=== PATIENT | male | born 1955 | race African-American/Black ===

== ENCOUNTER 2022-10-03 08:52 | Emergency (ER) | payer OTHER ==
--- OUTSIDE RECORDS SUMMARY | 2022-10-03 08:58 | XMS REPORT | Continuity of Care Document ---
:1955 Author Organization [facility] t Address [address] [place] [address] [place] [id number] Care Team Providers Name Role Phone SIVA PARNELL Primary Care Physician Unavailable COSME BARNES Attending Clinician Unavailable Cosme Barnes DO Attending Clinician Doctor Unassigned, [place] Attending Clinician Unavailable Jose Sellers Attending Clinician Janel Selby MD Attending Clinician JANEL SELBY Attending Clinician Unavailable COSME BARNES Admitting Clinician Unavailable Payers Payer Name Policy Type Policy Number Effective Date Expiration Date S ource MEDICARE OBS/INPT [id number] 2021 PART A ONLY 00:00:00 Problems Condition Condition Condition Status Onset Resolution Last Treating Co mments Source Name Details Category Date Date Treatment Clinician Date Amnesia Amnesia Problem Active 2020-12-24 Me moria (finding) (finding) 00:46:39 l Active Mo Problem 12/24/2020 [facility] Concussion Problem Active 2020-12-24 M emoria injury of Concussion 00:46:39 l body injury of Mo structure body (disorder) structure (disorder) Active Problem 12/24/2020 [facility] Hypertensi Hypertens Problem Active 2020-12-24 Memoria ve shan 00:46:39 l disorder, disorder, Herm katerin systemic systemic arterial arterial (disorder) (disorder) Active Problem 12/24/2020 [facility] Allergies, Adverse Reactions, Alerts Allergy Allergy Status Severity Reaction(s) Onset Inactive Treating Comm ents Source Name Type Date Date Clinician NO KNOWN Drug Active Univers ALLERGIE Class ity of [facility] Social History Social Habit Start Date Stop Date Quantity Comments Source Exposure to 2022-07-26 2022-08-05 Not sure [facility] SARS-CoV-2 (event) 00:00:00 09:18:00 [facility] Social History 2020-12-21 2020-12-21 [facility] Ariana munson 20:12:03 20:12:03 Sex [birth year] [facility] 00:00:00 00:00:00 Medical Branch Smoking Status Start Date Stop Date Source Tobacco smoking consumption [facility] unknown Branch Medications Ordered Filled Start Stop Current Ordering Indication Dosage Frequency Signature Comments Components Source Medication Medication Date Date Medication? Clinician (SIG) Name Name dexamethaso 2022- Yes 10mg 10 mg, Uni vers ne 08-05 Oral, ity of (DECADRON 16:45: 04:44 ONCE, 1 [place] PHOSPH[place] 00 :00 dose, On Medic al injection [facility] Branch 10 mg 08/05/22 at 1145, Routine NaCl 0.9% 2022- No 1000mL at 999 Uni vers (NS) bolus 08-05 mL/hr, ity of infusion 15:30: 16:16 1,000 mL, [place] as 1,000 mL 00 :00 IV Medical Piggyback, [place] ONCE, 1 dose, On e 08/05/22 at 1030, STAT Ondansetron Yes 4 mg = 1 Me moria 4 MG 8-27 tab, PO, l Disintegrat 20:27: TID, PRN He rmann ing Tablet 00 Nausea / Vomiting, Dissolve tab under tongue, # 10 tab, 0 Refill(s) nebivolol Yes 20 mg = 1 Mem oria 20 MG Oral 8-27 tab, PO, l Tablet 20:27: Daily, # [place] [Bystolic] 00 90 tab, 1 Refill(s) tramadol Yes 50 mg = 1 Maynor roderick hydrochlori 8-27 tab, PO, l de 50 MG 20:27: Q6H, PRN Elsa nn Oral Tablet 00 Pain, # 40 tab, 0 Refill(s) nebivolol Yes 20 mg = 1 Mem oria 20 MG Oral 8-27 tab, PO, l Tablet 20:27: Daily, # Mo [Bystolic] 00 90 tab, 1 Refill(s) tramadol Yes 50 mg = 1 Maynor roderick hydrochlori 8-27 tab, PO, l de 50 MG 20:27: Q6H, PRN Elsa nn Oral Tablet 00 Pain, # 40 tab, 0 Refill(s) Ondansetron Yes 4 mg = 1 Me moria 4 MG 8-27 tab, PO, l Disintegrat 20:27: TID, PRN He rmann ing Tablet 00 Nausea / Vomiting, Dissolve tab under tongue, # 10 tab, 0 Refill(s) nebivolol Yes 20 mg = 1 Mem oria 20 MG Oral 8-27 tab, PO, l Tablet 20:27: Daily, # [place] [Bystolic] 00 90 tab, 1 Refill(s) tramadol Yes 50 mg = 1 Maynor roderick hydrochlori 8-27 tab, PO, l de 50 MG 20:27: Q6H, PRN Elsa nn Oral Tablet 00 Pain, # 40 tab, 0 Refill(s) Ondansetron Yes 4 mg = 1 Me moria 4 MG 8-27 tab, PO, l Disintegrat 20:27: TID, PRN He rmann ing Tablet 00 Nausea / Vomiting, Dissolve tab under tongue, # 10 tab, 0 Refill(s) ondansetron 2020- No 4mg 4 mg, Slow Univers (ZOFRAN 11-10 IV Push, ity of (PF)) 15:30: 14:25 ONCE, 1 [place] injection 4 00 :00 dose, Sat Med ical mg 11/10/20 at Branch 1030, EVELYN morpHINE 2020-0 2020- No 4mg 4 mg, Slow Un fatou injection 4 11-10 IV Push, ity of mg 15:30: 14:25 ONCE, 1 [place] 00 :00 dose, Sat Medical 11/10/20 at Branch 1030, STAT traMADoL 50 0 Yes [id number] 50mg Take 1 Univ ers mg tablet -17 tablet by ity o f 00:00: mouth [place] 00 every 6 Medical (six) Branch hours as needed for Pain (scale 4-6). Indication s: acute pain ondansetron 0 Yes [id number] 4mg Take 1 Univers 4 mg 7-17 [id number] tablet by ity of disintegrat 00:00: mouth [place] ing tablet 00 every 4 Medica l (four) Branch hours as needed for Nausea and Vomiting (N/V). traMADoL 50 0 Yes [id number] 50mg Take 1 Univ ers mg tablet 7-17 tablet by ity o f 00:00: mouth [place] 00 every 6 Medical (six) Branch hours as needed for Pain (scale 4-6). Indication s: acute pain ondansetron Yes [id number] 4mg Take 1 Univers 4 mg 7-17 [id number] tablet by ity of disintegrat 00:00: mouth [place] ing tablet 00 every 4 Medica l (four) Branch hours as needed for Nausea and Vomiting (N/V). traMADoL 50 0 Yes [id number] 50mg Take 1 Univ ers mg tablet 7-17 tablet by ity o f 00:00: mouth [place] 00 every 6 Medical (six) Branch hours as needed for Pain (scale 4-6). Indication s: acute pain ondansetron Yes [id number] 4mg Take 1 Univers 4 mg 7-17 [id number] tablet by ity of disintegrat 00:00: mouth [place] ing tablet 00 every 4 Medica l (four) Branch hours as needed for Nausea and Vomiting (N/V). Immunizations Ordered Filled Immunization Date Status Comments [facility] e Immunization Name Name SARS-COV-2 COVID-19 2020-07-02 Completed Unive rsity of MODERNA VACCINE 00:00:[address] [facility] SARS-COV-2 COVID-19 2020-07-02 Completed Unive rsity of MODERNA VACCINE 00:00:[address] [facility] SARS-COV-2 COVID-19 2020-07-02 Completed Unive rsity of MODERNA 12+ YRS 00:00:00 [facility] Vital Signs Vital Name Observation Time Observation Value Comments Source Systolic blood 2022-08-05 16:10:42 130 mm[Hg] Univer sity of pressure [facility] Diastolic blood 2022-08-05 16:10:42 68 mm[Hg] Unive rsity of [facility] Heart rate 2022-08-05 16:10:42 58 /min Universi ty of [place] [facility] [place] Body temperature 2022-08-05 16:10:42 36.17 Annie [facility] ersity [facility] Respiratory rate 2022-08-05 16:10:42 16 /min [facility] ersity [facility] Body height 2022-08-05 14:17:00 193 cm Universi ty of [facility] Body weight 2022-08-05 14:17:00 113.399 kg Universi ty of [facility] BMI 2022-08-05 14:17:00 30.43 kg/m2 Universi ty [facility] Oxygen saturation in 2022-08-05 14:17:00 97 /min University of Arterial blood by [facility] Pulse oximetry Branch Systolic blood 2020-11-10 16:00:00 179 mm[Hg] Univer sity of pressure [facility] Diastolic blood 2020-11-10 16:00:00 94 mm[Hg] Unive rsity of pressure [facility] Heart rate 2020-11-10 16:00:00 89 /min Universi ty of [facility] Oxygen saturation in 2020-11-10 16:00:00 96 /min University of Arterial blood by [facility] Pulse oximetry Branch Respiratory rate 2020-11-10 15:00:00 16 /min [facility] Body temperature 2020-11-10 13:27:00 36.44 Annie [facility] Body weight 2020-11-10 13:27:00 117.935 kg Universi ty of [facility] Diastolic (mm Hg) 2020-12-21 20:10:00 Mem orial [place] Heart Rate 2020-12-21 20:10:00 Memorial Mo Respitory Rate 2020-12-21 20:10:00 Memori al [place] Height 2020-12-21 20:10:00 187.96 cm [facility] [place] Weight 2020-12-21 20:10:00 [facility] Mo BMI Calculated 2020-12-21 20:10:00 Memori al [place] Systolic (mm Hg) 2020-12-21 20:10:00 [facility] Procedures Procedure Date / Time Performing Clinician Source Performed XR CHEST 1 VW 2022-08-05 15:41:21 Singer [facility] COMP. METABOLIC PANEL 2022-08-05 14:30:00 Cosme Barnes [facility] ([id number]) [facility] CBC WITH DIFF 2022-08-05 14:30:00 Singer [facility] AUTHORIZATION FOR 2021-01-24 05:01:00 Doctor Unassigned, No [facility] RELEASE OF PHI Name [facility] URINALYSIS 2020-11-10 14:21:00 Bal [facility] XR CHEST 1 VW 2020-11-10 14:15:24 Bal [facility] XR RIBS 3 VW LEFT 2020-11-10 14:15:24 Bal [facility] CT HEAD WO CONTRAST 2020-11-10 14:15:07 Janel Selby [facility] ty of [facility] LIPASE 2020-11-10 13:38:00 Bal [facility] TROPONIN I 2020-11-10 13:38[facility] 2020-11-10 13:38:00 Bal [facility] (NA, K, CL, CO2, Medical Branch GLUCOSE, BUN, CREATININE, CA) COMP. METABOLIC PANEL 2020-11-10 13:38:00 [facility] ([id number]) [facility] CBC WITH DIFF 2020-11-10 13:38:00 [facility] NOTICE OF PRIVACY 2020-11-10 13:23:05 Doctor Unassigned, No [facility] PRACTICES Name [facility] Encounters Start End Encounter Admission Attending Care Care Encounter Source Date/Time Date/Time Type Type Clinicians Facility Department ID 2022-08-05 2022-08-05 Emergency X SINGER TNRENETTA ERT [id number] Univers 09:19:00 11:15:00 COSME ca [facility] 2022-08-05 2022-08-05 Emergency ANTON Barnes [id number] Univers 09:19:00 11:15:00 Cosme JOYCE [id number] i [facility] 4.2.7.2.686 [facility] [id number] [facility] 084 [place] 2021-01-24 2021-01-24 Orders Doctor YESENIA [id number] Univers 00:00:00 00:00:00 Only Unassigned, VIANNEY [id number] ity of [place] [facility] [id number] [facility] [id number] [facility] 009 [place] 2020-12-21 2020-12-22 Outpatient nullFlavo MNA [id number] Memoria 20:00:00 04:59:59 r Neurology 00 l Guido Valdezann 2020-12-21 2020-12-22 Outpatient nullFlavo MNA [id number] Memoria 20:00:00 04:59:59 r Neurology 00 l Guido [place] 2020-12-21 2020-12-21 Outpatient LISET SellersMIDAYNE [id number] 15:00:00 23:59:59 Jose 00 Agustin 2020-12-21 2020-12-21 Outpatient MHIE BLACKIE [id number] Memoria 15:00:00 15:00:00 00 l [place] 2020-11-10 2020-11-10 [facility] [id number] Univers 08:21:00 11:26:00 Janel Joyce [id number] i ty [place] 4.2.7.2.686 [facility] [id number] [address] 2020-11-10 2020-11-10 [facility] [id number] Univers 08:21:00 08:21:00 JANEL ca [facility] Results Test Description Test Time Test Comments Results Result Comments Source COMP. METABOLIC PANEL ([id number]) 2022-08-05 15:07:46 Test Item Value Reference Range Interpretation Comme nts NA (test code = 2224335991) 138 mmol/L 135-145 K (test code = 2039856180) 3.1 mmol/L 3.5-5.0 L CL (test code = 2573396693) 105 mmol/L 98-108 CO2 TOTAL (test code = 6409897798) 22 mmol/L 23-31 L AGAP (test code = 8285397868) 11 2-16 BUN (test code = 4316280835) 22 mg/dL 7-23 GLUCOSE (test code = 1381589582) 102 mg/dL 70-110 CREATININE (test code = 0.93 mg/dL 0.60-1.25 8738476931) TOTAL BILI (test code = 2.6 mg/dL 0.1-1.1 H 0350383572) CALCIUM (test code = 8047435691) 8.9 mg/dL 8.6-10.6 T PROTEIN (test code = 1158187580) 7.9 g/dL 6.3-8.2 ALBUMIN (test code = 0856620817) 3.5 g/dL 3.5-5.0 ALK PHOS (test code = 8922975103) 62 U/L 34-122 ALTv (test code = 1742-6) 102 U/L 5-50 H AST(SGOT) (test code = 2367344265) 97 U/L 13-40 H eGFR (test code = 6196716292) 81.3 mL/min/1.73m2 LATRELL (test code = LATRELL) Association of Glomerular Filtration Rate (GFR) and Staging of Kidney Disease* + +-------- + ------+| GFR (mL/min/1.73 m2) ?| With Kidney Damage ?| ?Without Kidney Damage+ +-- + +| ?>90 ?| ?Stage one ?| ? Normal ?+ +------- + -------+| ?60-89 ?| ?Stage two ?| ? Decreased GFR ? + +-------- + ------+| ?30-59 ?| ?Stage three ?| ? Stage three ? + +-------- + ------+| ?15-29 ?| ?Stage four ? | ? Stage four ?+ +------- + -------+| ?<15 (or dialysis) ? ?| ?Stage five ? | ? Stage five ?+ +------- + -------+ *Each stage assumes the associated GFR level has been in effect for at least three months. ?Stages 1 to 5, with or without kidney disease, indicate chronic kidney disease. Notes: Determination of stages one and two (with eGFR >59mL/min/1.73 m2) requires estimation of kidney damage for at least three months as defined by structural or functional abnormalities of the kidney, manifested by either:Pathological abnormalities or Markers of kidney damage (including abnormalities in the composition of the blood or urine or abnormalities in imaging tests). Lab Interpretation (test code = Abnormal 60698-0) [facility] WITH [id number] 15:00:06 Test Item Value Reference Range Interpretation Comments WBC (test code = 11.19 See_Comment H [Automated 8290-2) message] The sy stem which generated this result transmitted reference range : 4.20 - 10.70 10*3/?L. The reference range was not used to interpret this result as normal/abnormal . RBC (test code = 3.50 See_Comment L [Automated 789-8) message] The sy stem which generated this result transmitted reference range : 4.26 - 5.52 10*6/?L. The reference range was not used to interpret this result as normal/abnormal . HGB (test code = 10.6 g/dL 12.2-16.4 L 718-7) HCT (test code = 31.9 % 38.4-49.3 L 4544-3) MCV (test code = 91.1 fL 81.7-95.6 787-2) MCH (test code = 30.3 pg 26.1-32.7 785-6) MCHC (test code = 33.2 g/dL 31.2-35.0 786-4) RDW-SD (test code = 42.9 fL 38.5-51.6 48753-5) RDW-CV (test code = 13.2 % 12.1-15.4 788-0) PLT (test code = 197 See_Comment [Automated 777-3) message] The sy stem which generated this result transmitted reference range : 150 - 328 10*3/ ?L. The reference r alisson was not used to interpret this result as normal/abnormal . MPV (test code = 10.2 fL 9.8-13.0 49521-6) NRBC/100 WBC (test 0.0 See_Comment [Automat ed code = 0470246932) message] The system which generated this result transmitted reference range : 0.0 - 10.0 /100 WBCs. The refer ence range was not u sed to interpret th is result as normal/abnormal . NRBC x10^3 (test code See_Comment [Auto mated = 9534663718) message] The [employer] which generated this result transmitted reference range : 10*3/?L. The reference range was not used to interpret this result as normal/abnormal . GRAN MAT (NEUT) % 66.1 % (test code = 770-8) IMM GRAN % (test code 0.60 % = 3551756601) LYMPH % (test code = 23.2 % 736-9) MONO % (test code = 6.9 % 5905-5) EOS % (test code = 2.2 % 713-8) BASO % (test code = 1.0 % 706-2) GRAN MAT x10^3(ANC) 7.39 10*3/uL 1.99-6.95 H (test code = 6301457096) IMM GRAN x10^3 (test 0.07 10*3/uL 0.00-0.06 H code = 5153437192) LYMPH x10^3 (test code 2.60 10*3/uL 1.09-3.23 = 731-0) MONO x10^3 (test code 0.77 10*3/uL 0.36-1.02 = 742-7) EOS x10^3 (test code = 0.25 10*3/uL 0.06-0.53 711-2) BASO x10^3 (test code 0.11 10*3/uL 0.01-0.09 H = 704-7) Lab Interpretation Abnormal (test code = 63170-6) [id number] 15:55:52 Test Item Value Reference Interpretation Comments Range TROPONIN I (test 0.006 ng/mL See_Comment [Automated code = 6617033539) message] The system which generated this result transmitted reference range : <=0.034. The reference range was not used to interpret this result as normal/abnormal . LATRELL (test code = Reference (Normal) LATRELL) Range (defined by the 99th percentile reference limit): <= 0.034 ng/mL Note: Cardiac troponin begins to rise 3-4 hours after the onset of ischemia. Repeat in 4-6 hours if the sample was drawn within 3-4 hours of the onset of the symptom and found normal. Diagnosis of myocardial injury is made with acute changes in cTn concentrations with at least one serial sample above the 99th percentile upper reference limit (URL), taken together with the patient's clinical presentation. Biotin has been reported to cause a negative bias, interpret results relative to patient's use of biotin. Lab Interpretation Normal (test code = 35538-1) [facility] 1 [id number] 15:07:54Normal chest. RL: 6507 STUDY: SINGLE FRONTAL VIEW OF THE CHEST ORDERING PHYSICIAN: JANEL SELBY DATE: ?11/10/2020 8:45 AM REASON FOR EXAM: ?left chest wall pain TECHNIQUE: ?Frontal view of the chest COMPARISON: None available FINDINGS: The cardiomediastinal silhouette is normal. The lungs are clear. ? The remaining osseous and soft tissue structures are unremarkable. [facility], Radiant Results Inft User - 11/10/2020 10:08 AM CDTFormatting ofthis note might be different from the original.STUDY: SINGLE FRONTAL VIEW OF THE CHESTORDERING PHYSICIAN: JANEL SELBYDATE: 11/10/2020 8:45 AMREASON FOR EXAM: left chest wall pain TECHNIQUE: Frontal view of the chestCOMPARISON: None availableFINDINGS: The cardiomediastinal silhouette is normal. The lungs are clear. The remaining osseous and soft tissue structures are unremarkable.IMPRESSIONNormal chest.RL: 6507 [facility] 2020-11-10 14:40:09 Test Item Value Reference Range Interpretation Comments APPEARANCE (test code = Clear Clear 9306296210) COLOR (test code = Yellow Yellow 5591491718) PH (test code = 4.8-8.0 0379453603) SP GRAVITY (test code = 1.003-1.030 5713581169) GLU U QUAL (test code = Normal Normal 8653873597) BLOOD (test code = Negative Negative 0601196536) KETONES (test code = Negative Negative 2349572114) PROTEIN (test code = Negative Negative 2887-8) UROBILIN (test code = 4.0 mg/dL Normal A 2668661543) BILIRUBIN (test code = Negative Negative 2290613560) NITRITE (test code = Negative Negative 2931913574) LEUK BRIGIDO (test code = Negative Negative 7786757912) RBC/HPF (test code = See_Comment [Autom ated message] 3595217832) The system Schedule [employer] Systems generated this result transmit nneka reference range : 0 - 3 HPF. The refe rence range was not u sed to interpret th is result as normal/abnormal . WBC/HPF (test code = <1 See_Comment [Autom ated message] 6634410157) The system [employer] generated this result transmit nneka reference range : 0 - 5 HPF. The refe rence range was not u sed to interpret th is result as normal/abnormal . BACTERIA (test code = Negative Negative 4230554482) SQ EPITH (test code = HPF 1050424877) Lab Interpretation (test Abnormal code = 96646-0) [facility] [id number] 14:35:39 No acute intracranial abnormality. Preliminary Report Dictated by Resident: Susan Rider I, Jeyson Bella MD., have reviewed this study and agree with the abovereport.EXAM: CT HEAD WO CONTRAST HISTORY: 65 years -old Male with Head trauma after fall, abnormal mentalstatus (Age 19-64y) COMPARISON: None available. TECHNIQUE: Axial CT of the head was performed and reconstructed at 5 mmintervals. Coronal and sagittal reformatted images were generated. FINDINGS:The ventricles and cerebral sulci are normal in caliber and configuration.No hydrocephalus, midline shift or pathological extra-axial fluidcollection is present. The basal cisterns are unremarkable. There is no acute intracranial hemorrhage or significant mass effect. Noparenchymal attenuation abnormality. The mendez-white matter differentiationis preserved. Remote fracture deformity of the left medial orbital wall. The mastoid aircells and paranasal air sinuses are clear. The calvarium and central skullbase are unremarkable. [facility], Radiant Results Inft User - 11/10/2020 9:36 AM CDT EXAM: CT HEAD WO CONTRASTHISTORY: 65 years -old Male with Head trauma after fall, abnormal mentalstatus (Age 19-64y) COMPARISON: None available.TECHNIQUE: Axial CT of the head was performed and reconstructed at 5 mmintervals. Coronal and sagittal reformatted images were generated.FINDINGS:The ventriclesand cerebral sulci are normal in caliber and configuration.No hydrocephalus, midline shift or patholo gical extra-axial fluidcollection is present. The basal cisterns are unremarkable.There is no acute intracranial hemorrhage or significant mass effect. Noparenchymal attenuation abnormality. The mendez-white matter differentiationis preserved.Remote fracture deformity of the left medial orbital wall. The mastoid aircells and paranasal air sinuses are clear. The calvarium and central skullbase are unremarkable.IMPRESSIONNo acute intracranial abnormality.Preliminary Report Dictated by Resident: Jeyson Corrales MD., have reviewed this study and agree with the abovereport. [facility] RIBS 3 VW [id number] 14:29:57 Impression:1. ?No acute disease. No displaced rib fracture. Location Code: 2831 Clinical statement: left chest wall pain . Study: Chest x-rayand left rib series 4 views. Comparison: None. Ordering physician: JANEL SELBY Findings:Lung volumes are normal. ?There is no consolidation, effusion, edema orpneumothorax. ?The cardiac and mediastinal silhouette is unremarkable. ?Thetrachea is midline. ?The osseous structures are unremarkable. [facility], Radiant Results Inft User - 11/10/2020 9:31 AM CDT Clinical statement: left chest wall pain .Study: Chest x-ray and left rib series 4 views. Comparison: None.Ordering physician: JANEL SELBY Findings:Lung volumes are normal. There is no consolidation, effusion, edema orpneumothorax. The cardiac and mediastinal silhouette is unremarkable. Thetrachea is midline. The osseous structures are unremarkable.IMPRESSIONImpression:1. No acute disease. No displaced rib fracture.Location Code: 2831Electronically signed by Nhan Hadley MD at 19:29 AMUnParkview Regional HospitalCOMP. METABOLIC PANEL (54395)2020-11-10 14:00:48 Test Item Value Reference Range Interpretation Comments NA (test code = 143 mmol/L 135-145 0254218107) K (test code = 4.0 mmol/L 3.5-5.0 8702149181) CL (test code = 107 mmol/L 98-108 5041373579) CO2 TOTAL (test code = 25 mmol/L 23-31 8174173285) AGAP (test code = 2-16 3019020478) BUN (test code = 12 mg/dL 7-23 0262148352) GLUCOSE (test code = 104 mg/dL 70-110 3682185821) CREATININE (test code = 0.83 mg/dL 0.60-1.25 0680012009) TOTAL BILI (test code = 0.7 mg/dL 0.1-1.6 6490509921) CALCIUM (test code = 9.8 mg/dL 8.6-10.6 9785384109) T PROTEIN (test code = 8.7 g/dL 6.3-8.2 H 6653191549) ALBUMIN (test code = 4.6 g/dL 3.5-5.0 5372645246) ALK PHOS (test code = 43 U/L 34-122 0818538057) ALTv (test code = 19 U/L 5-50 1742-6) AST(SGOT) (test code = 32 U/L 13-40 8807717158) eGFR (test code = mL/min/1.73m2 3878573521) LATRELL (test code = LATRELL) Association of Glomerular Filtration Rate (GFR) and Staging of Kidney Disease* + --+ --+ ------+| GFR (mL/min/1.73 m2) ?| With Kidney Damage ?| ?Without Kidney Damage+ --------+ --------+ +| ?>90 ?| ?Stage one ?| ? Normal ?+ ---+ ---+ -------+| ?60-89 ?| ?Stage two ?| ? Decreased GFR ? + --+ --+ ------+| ?30-59 ?| ?Stage three ?| ? Stage three ? + --+ --+ ------+| ?15-29 ?| ?Stage four ? | ? Stage four ?+ ---+ ---+ -------+| ?<15 (or dialysis) ? ?| ?Stage five ? | ? Stage five ?+ ---+ ---+ -------+ *Each stage assumes the associated GFR level has been in effect for at least three months. ?Stages 1 to 5, with or without kidney disease, indicate chronic kidney disease. Notes: Determination of stages one and two (with eGFR >59mL/min/1.73 m2) requires estimation of kidney damage for at least three months as defined by structural or functional abnormalities of the kidney, manifested by either:Pathological abnormalities or Markers of kidney damage (including abnormalities in the composition of the blood or urine or abnormalities in imaging tests). Lab Interpretation Abnormal (test code = 77368-2) [facility] METABOLIC PANEL (NA, K, CL, CO2, GLUCOSE, BUN, CREATININE, CA)2020-11-10 14:00:48 Test Item Value Reference Range Interpretation Comments NA (test code = 143 mmol/L 135-145 9364799236) K (test code = 4.0 mmol/L 3.5-5.0 0660755417) CL (test code = 107 mmol/L 98-108 4854272345) CO2 TOTAL (test code 25 mmol/L 23-31 = 4615479755) AGAP (test code = 2-16 9671671004) BUN (test code = 12 mg/dL 7-23 6281014100) GLUCOSE (test code = 104 mg/dL 70-110 2745312179) CREATININE (test code 0.83 mg/dL 0.60-1.25 = 3613276920) CALCIUM (test code = 9.8 mg/dL 8.6-10.6 7932998444) eGFR (test code = mL/min/1.73m2 3755899586) LATRELL (test code = LATRELL) Association of Glomerular Filtration Rate (GFR) and Staging of Kidney Disease* + + +- +| GFR (mL/min/1.73 m2) ?| With Kidney Damage ?| ?Without Kidney Damage+ ------+ ----+ ------+| ?>90 ?| ?Stage one ?| ? Normal ?+ -+ + -+| ?60-89 ?| ?Stage two ?| ? Decreased GFR ? + + +- +| ?30-59 ?| ?Stage three ?| ? Stage three ? + + +- +| ?15-29 ?| ?Stage four ? | ? Stage four ?+ -+ + -+| ?<15 (or dialysis) ? ?| ?Stage five ? | ? Stage five ?+ -+ + -+ *Each stage assumes the associated GFR level has been in effect for at least three months. ?Stages 1 to 5, with or without kidney disease, indicate chronic kidney disease. Notes: Determination of stages one and two (with eGFR >59mL/min/1.73 m2) requires estimation of kidney damage for at least three months as defined by structural or functional abnormalities of the kidney, manifested by either:Pathological abnormalities or Markers of kidney damage (including abnormalities in the composition of the blood or urine or abnormalities in imaging tests). [facility] Test Item Value Reference Range Interpretation Comments LIPASE (test code = 7410902717) 139 U/L 0-220 Lab Interpretation (test code = Normal 00541-6) [facility] WITH [id number] 13:46:04 Test Item Value Reference Range Interpretation Comments WBC (test code = See_Comment [Automated 8380-2) message] The sy stem which generated this result transmitted reference range : 4.20 - 10.70 10*3/?L. The reference range was not used to interpret this result as normal/abnormal . RBC (test code = See_Comment [Automated 317-8) message] The sy stem which generated this result transmitted reference range : 4.26 - 5.52 10*6/?L. The reference range was not used to interpret this result as normal/abnormal . HGB (test code = 14.0 g/dL 12.2-16.4 718-7) HCT (test code = 42.0 % 38.4-49.3 4544-3) MCV (test code = 94.6 fL 81.7-95.6 787-2) MCH (test code = 31.5 pg 26.1-32.7 785-6) MCHC (test code = 33.3 g/dL 31.2-35.0 786-4) RDW-SD (test code = 39.6 fL 38.5-51.6 50840-0) RDW-CV (test code = 11.5 % 12.1-15.4 L 788-0) PLT (test code = See_Comment [Automated 777-3) message] The sy stem which generated this result transmitted reference range : 150 - 328 10*3/ ?L. The reference r alisson was not used to interpret this result as normal/abnormal . MPV (test code = 8.7 fL 9.8-13.0 L 15485-2) NRBC/100 WBC (test See_Comment [Automat ed code = 8478349562) message] The system which generated this result transmitted reference range : 0.0 - 10.0 /100 WBCs. The refer ence range was not u sed to interpret th is result as normal/abnormal . NRBC x10^3 (test code <0.01 See_Comment [Auto mated = 5813321147) message] The s ystem which generated this result transmitted reference range : 10*3/?L. The reference range was not used to interpret this result as normal/abnormal . GRAN MAT (NEUT) % 60.4 % (test code = 770-8) IMM GRAN % (test code 0.30 % = 3648968168) LYMPH % (test code = 32.3 % 736-9) MONO % (test code = 5.7 % 5905-5) EOS % (test code = 0.4 % 713-8) BASO % (test code = 0.9 % 706-2) GRAN MAT x10^3(ANC) 4.58 10*3/uL 1.99-6.95 (test code = 1104563633) IMM GRAN x10^3 (test <0.03 0.00-0.06 code = 8182964065) LYMPH x10^3 (test code 2.45 10*3/uL 1.09-3.23 = 731-0) MONO x10^3 (test code 0.43 10*3/uL 0.36-1.02 = 742-7) EOS x10^3 (test code = 0.03 10*3/uL 0.06-0.53 L 711-2) BASO x10^3 (test code 0.07 10*3/uL 0.01-0.09 = 704-7) Lab Interpretation Abnormal (test code = 44217-8) [facility]"
--- NOTE | 2022-10-03 11:02 | RAD REPORT ---
EXAM DESCRIPTION: RAD - Chest Single View - 10/03/2022 10:56 am CLINICAL HISTORY: SWELLING Chest pain. COMPARISON: Chest Single View dated 07/28/2022 FINDINGS: Portable technique limits examination quality. The lungs are grossly clear with scarring in the left base. The heart is normal in size. No displaced fractures. IMPRESSION: No acute intrathoracic process suspected.
--- NOTE | 2022-10-03 11:02 | RAD REPORT ---
EXAM DESCRIPTION: US - Extrem Venous W Compress Rebel - 10/03/2022 10:47 am CLINICAL HISTORY: SWELLING Bilateral leg edema and swelling. COMPARISON: No comparisons TECHNIQUE: Real-time sonographic interrogation of the left and right lower extremity deep venous sys tems was performed. FINDINGS: Partial thrombus is suspected right femoral vein. Additional thrombus is noted in the righ t popliteal vein and to a lesser extent the left popliteal vein. IMPRESSION: Bilateral DVT is suspected, greater on the right as detailed.
--- NOTE | 2022-10-03 11:03 | RAD REPORT ---
EXAM DESCRIPTION: RAD - Ankle Right 3 View - 10/03/2022 10:56 am CLINICAL HISTORY: SWELLING COMPARISON: No comparisons FINDINGS: Evidence of previous trauma involves the right ankle. There is moderate soft tissue swelli ng adjacent to the lateral malleolus. Small plantar calcaneal spur. No acute fracture seen.
--- NOTE | 2022-10-03 11:51 | ER ---
Nurse's Notes [facility] Name: Benjamin Toussaint Sr Age: 67 yrs Sex: Male : 1955 Arrival Date: 10/03/2022 Time: 08:52 Bed Treatment Private MD: Diagnosis: Deep vein thrombosis Presentation: 10/03 09:24 Chief complaint: Patient states: CANDY lower leg swelling since Thursday. Coronavirus ld1 screen: At this time, the client does not indicate any symptoms associated with coronavirus-19. Ebola Screen: No symptoms or risks identified at this time. Initial Sepsis Screen: Does the patient meet any 2 criteria? No. Patient's initial sepsis screen is negative. Does the patient have a suspected source of infection? No. Patient's initial sepsis screen is negative. Risk Assessment: Do you want to hurt yourself or someone else? Patient reports no desire to harm self or others. Onset of symptoms was October 03, 2022 at 09:25. 09:24 Method Of Arrival: Ambulatory ld1 09:24 Acuity: ESTEVAN 3 ld1 Triage Assessment: 09:25 General: Appears in no apparent distress. comfortable, Behavior is calm, cooperative, ld1 appropriate for age. Pain: Denies pain. EENT: No signs and/or symptoms were reported regarding the EENT system. Neuro: Level of Consciousness is awake, alert, obeys commands, Oriented to person, place, time, situation. Cardiovascular: Capillary refill < 3 seconds Patient's skin is warm and dry. Respiratory: Airway is patent Respiratory effort is even, unlabored. GI: Abdomen is flat, non-distended. : No signs and/or symptoms were reported regarding the genitourinary system. Derm: No signs and/or symptoms reported regarding the dermatologic system. Musculoskeletal: No signs and/or symptoms reported regarding the musculoskeletal system. Historical: - Allergies: :25 No Known Allergies; ld1 - PMHx: : Hypertensive disorder; memory issues; ld1 - PSHx: : None; ld1 - Immunization history:: Adult Immunizations up to date, Client reports receiving the 2nd dose of the Covid vaccine. - Social history:: Smoking status: Patient denies any tobacco usage or history of. Patient uses alcohol, on a daily basis. Screenin:53 [facility] ED Fall Risk Assessment (Adult) History of falling in the last 3 months, nj1 including since admission No falls in past 3 months (0 pts) Confusion or Disorientation No (0 pts) Intoxicated or Sedated No (0 pts) Impaired Gait No (0 pts) Mobility Assist Device Used No (0 pt) Altered Elimination No (0 pt) Score/Fall Risk Level 0 - 2 = Low Risk Oriented to surroundings, Maintained a safe environment, Hourly rounding (assess needs \T\ fall precautionary measures) done. Abuse screen: Denies threats or abuse. Denies injuries from another. Nutritional screening: No deficits noted. Tuberculosis screening: No symptoms or risk factors identified. Assessment: 09:52 Reassessment: Patient appears in no apparent distress at this time. Patient and/or nj1 family updated on plan of care and expected duration. Pain level reassessed. Patient is alert, oriented x 3, equal unlabored respirations, skin warm/dry/pink. Patient denies pain at this time. Cardiovascular: swelling noted to candy lower legs/ankles.. 10:50 Reassessment: Not in room at this time. nj1 11:10 Reassessment: Patient appears in no apparent distress at this time. Patient and/or nj1 family updated on plan of care and expected duration. Pain level reassessed. Patient is alert, oriented x 3, equal unlabored respirations, skin warm/dry/pink. Patient denies pain at this time. 12:13 Reassessment: Patient appears in no apparent distress at this time. Patient and/or nj1 family updated on plan of care and expected duration. Pain level reassessed. Patient is alert, oriented x 3, equal unlabored respirations, skin warm/dry/pink. Patient denies pain at this time. Vital Signs: 09:24 Pulse 76; Resp 18; Temp 97.9(TE); Pulse Ox 99% on R/A; Weight 108.86 kg; Height 6 ft. 4 ld1 in. ; Pain 0/10; 12:13 BP 155 / 88; Pulse 50; Resp 16; Pulse Ox 100% on R/A; Pain 0/10; nj1 09:24 Body Mass Index 29.21 (108.86 kg, 193.04 cm) ld1 09:24 Pain Scale: Adult ld1 12:13 Pain Scale: Adult al1 ED Course: 08:55 Patient arrived in ED. ts1 09:13 Michelet Hernandez PA is PHCP. jmm 09:13 Solis Garg DO is Attending Physician. jm 09:25 Triage completed. ld1 09:25 Arm band placed on right wrist. ld1 09:27 Chitra Corona, RN is Primary Nurse. nj1 09:53 Patient has correct armband on for positive identification. Bed in low position. Call nj1 light in reach. Adult w/ patient. 10:48 US Extremity Venous W Compression Candy In Process Unspecified. EDMS 10:57 Chest Single View XRAY In Process Unspecified. EDMS 10:57 Ankle Right 3 View XRAY In Process Unspecified. EDMS 11:52 Guillermina Avendano MD is Referral Physician. jmm 12:21 No provider procedures requiring assistance completed. nj1 12:31 Patient did not have IV access during this emergency room visit. nj1 Administered Medications: 12:13 Drug: Eliquis PO 10 mg Route: PO; nj1 12:38 Follow up: Response: No adverse reaction nj1 Medication: 12:21 VIS not applicable for this client. nj1 Outcome: 11:51 Discharge ordered by MD. jmm 12:30 Discharged to home ambulatory, with family. nj1 12:30 Condition: stable 12:30 Discharge instructions given to patient, family, Instructed on discharge instructions, follow up and referral plans. medication usage, safety practices, Demonstrated understanding of instructions, follow-up care, medications, Prescriptions given X 1. 12:31 Patient left the ED. nj1 Signatures: Dispatcher [employer] EDMS Michelet Hernandez PA PA jm Angela Garg, CLIFFORD RN ld1 Chitra Corona, CLIFFORD RN nj1 Niyah Franz PAS PAS ts1 Corrections: (The following items were deleted from the chart) 09:25 09:25 PMHx: Myocardial infarction; ld1 ld1
--- NOTE | 2022-10-03 11:51 | EDPHYS ---
Physician Documentation [facility] Name: Benjamin Toussaint Sr Age: 67 yrs Sex: Male : 1955 Arrival Date: 10/03/2022 Time: 08:52 Bed Treatment Private MD: ED Physician Solis Garg HPI: 10/03 09:22 This 67 yrs old Black Male presents to ER via Ambulatory with complaints of Leg jmm Swelling. 09:22 The patient presents with swelling. Onset: The symptoms/episode began/occurred jmm gradually, 1 week(s) ago. Modifying factors: The symptoms are alleviated by nothing. the symptoms are aggravated by nothing. Associated signs and symptoms: Pertinent negatives fever. This is a 67-year-old male with history of hypertension the presents emerged department with complaints of bilateral lower extremity swelling beginning approximately a week ago. Denies chest pain or shortness of breath. Denies fever. Denies hemoptysis. Patient states he did recently recover from COVID approximately 6 weeks ago.. Historical: - Allergies: 09:25 No Known Allergies; ld1 - PMHx: 09:25 Hypertensive disorder; memory issues; ld1 - PSHx: 09:25 None; ld1 - Immunization history:: Adult Immunizations up to date, Client reports receiving the 2nd dose of the Covid vaccine. - Social history:: Smoking status: Patient denies any tobacco usage or history of. Patient uses alcohol, on a daily basis. ROS: 09:22 Constitutional: Negative for fever, chills, and weight loss, Cardiovascular: Negative jmm for chest pain, palpitations, and edema, Respiratory: Negative for shortness of breath, cough, wheezing, and pleuritic chest pain. 09:22 MS/extremity: Positive for swelling. 09:22 All other systems are negative. Exam: 09:22 Constitutional: This is a well developed, well nourished patient who is awake, alert, jmm and in no acute distress. Head/Face: atraumatic. Eyes: EOMI, no conjunctival erythema appreciated ENT: Moist Mucus Membranes Neck: Trachea midline, Supple Chest/axilla: Normal chest wall appearance and motion. Cardiovascular: Regular rate and rhythm. No edema appreciated Respiratory: Normal respirations, no respiratory distress appreciated Abdomen/GI: Non distended Back: Normal ROM Skin: General appearance color normal 09:22 Musculoskeletal/extremity: Swelling noted to the legs bilaterally, full dorsalis pedis pulse, compartments soft, sensation intact, neurovascular. 09:22 Skin: Appearance: Color: normal in color. 09:22 Neuro: Orientation: is normal, Mentation: is normal, Memory: is normal. 09:22 Psych: Behavior/mood is pleasant, cooperative. Vital Signs: 09:24 Pulse 76; Resp 18; Temp 97.9(TE); Pulse Ox 99% on R/A; Weight 108.86 kg; Height 6 ft. 4 ld1 in. ; Pain 0/10; 12:13 BP 155 / 88; Pulse 50; Resp 16; Pulse Ox 100% on R/A; Pain 0/10; nj1 09:24 Body Mass Index 29.21 (108.86 kg, 193.04 cm) ld1 09:24 Pain Scale: Adult ld1 12:13 Pain Scale: Adult nj1 MDM: 09:22 Patient medically screened. [facility] 13:07 Data reviewed: vital signs, nurses notes, radiologic studies, ultrasound. Consideration [facility] of Admission/Observation Escalation of care including admission/observation considered. Management of patient was discussed with the following: Dr. Garg. I considered the following discharge prescriptions or medication management in the emergency department Medications were administered in the Emergency Department. See MAR. Counseling: I had a detailed discussion with the patient and/or guardian regarding: the historical points, exam findings, and any diagnostic results supporting the discharge/admit diagnosis, radiology results, the need for outpatient follow up, to return to the emergency department if symptoms worsen or persist or if there are any questions or concerns that arise at home. ED course: Patient is alert nontoxic in appearance in the ED. Denies any chest pain or shortness of breath. Patient is afebrile. Patient advised to closely follow with PCP and otherwise given strict return precautions for chest pain, shortness of breath, weakness, dizziness, etc. Patient and family understood and agreed with plan of care peer. 10/03 09:22 Order name: US Extremity Venous W Compression Rebel; Complete Time: 11:08 [facility] 10/03 09:22 Order name: Chest Single View XRAY; Complete Time: 11:08 [facility] 10/03 09:22 Order name: Ankle Right 3 View XRAY; Complete Time: 11:08 [facility] Administered Medications: 12:13 Drug: Eliquis PO 10 mg Route: PO; nj1 12:38 Follow up: Response: No adverse reaction nj1 Disposition: 20:57 Co-signature as Attending Physician, Solis Garg DO I was immediately available on-site ms3 in the Emergency Department for consultation in the care of the patient. Disposition Summary: 10/03/22 11:51 Discharge Ordered Location: Home [facility] Condition: Stable [facility] Diagnosis - Deep vein thrombosis [facility] Followup: [facility] - With: Private Physician - When: 2 - 3 days - Reason: Recheck today's complaints, Continuance of care, Re-evaluation by your physician Followup: m - With: Guillermina Avendano MD - When: 2 - 3 days - Reason: Recheck today's complaints, Continuance of care, Re-evaluation by your physician Discharge Instructions: - Discharge Summary Sheet [facility] - Deep Vein Thrombosis [facility] Forms: - Medication Reconciliation Form [facility] - Thank You Letter [facility] - Antibiotic Education [facility] - Prescription Opioid Use [facility] Prescriptions: - Eliquis DVT-PE Treat 30D Start 5 mg (74 tabs) Oral Tablet, Dose Pack - take 2 tablet by ORAL route per package directions; 74 tablet; Refills: 0, [facility] Product Selection Permitted Signatures: Dispatcher [employer] EDMichelet Lopez PA PA jmm Sims, Marcus, DO DO ms3 Angela Garg, RN RN ld1 Chitra Corona RN RN nj1 Corrections: (The following items were deleted from the chart) 09:25 09:25 PMHx: Myocardial infarction; ld1 ld1
[2022-10-03] MEDS ORDERED: APIXABAN 5 MG TABLET ONE (12:10)
[2022-10-03 12:47] VITALS: TEMP 97.9
[2022-10-03 12:50] VITALS: BP 155/88; O2SAT 100
== END 2022-10-03 12:31 | disposition home or self-care (01) ==
LOC: ER 08:52
DX: I82.403 Acute embolism and thrombosis of unspecified deep veins of lower extremity, bilateral (principal); I10 Essential (primary) hypertension
CPT/HCPCS: 71045; 93970; 99283